=== PATIENT | male | born 1970 | race Caucasian/White ===

== ENCOUNTER 2021-02-16 13:38 | Emergency (ER) | payer MEDICARE, MEDICAID, SELFPAY ==
[2021-02-16 13:50] VITALS: BP 139/95; PULSE 81; RESP 14; TEMP 37.4; O2SAT 96
--- NOTE | 2021-02-16 13:53 | ED.UPPEXIN ---
HPI - Extremity Injury (Upper) General Chief Complaint: Extremity Injury, Upper Stated Complaint: left hand swollen Time Seen by Provider: 02/16/21 13:55 Source: patient Mode of arrival: ambulatory Limitations: no limitations History of Present Illness HPI narrative: Patient comes in with redness in left hand. He cut himself when cutting linoleum Wednesday. The hand has swelled a little, and has developed some erythema over the last two days. He has denied fever and chills. Discomfort in hand has been minimal. Nothing has made the hand better or worse. He has not elevated the hand which probably would have helped decrease the redness. He has not taken any medications. MD complaint: injury to: left and hand Onset (ago): day(s) Other injuries: none Handedness: left Place: home Severity: mild Severity scale (1-10): 1 Relieving factors: rest Exacerbating factors: movement of extremity Context: laceration Associated symptoms: denies other symptoms Related Data Home Medications Medication Instructions Recorded Confirmed bupropion HCl 300 mg PO DAILY 02/16/21 02/16/21 fluoxetine 40 mg PO DAILY 02/16/21 02/16/21 gabapentin 600 mg PO TID 02/16/21 02/16/21 hydrocodone-acetaminophen 1 tablet PO BID 02/16/21 02/16/21 levothyroxine 100 mcg PO DAILY 02/16/21 02/16/21 Allergies Allergy/AdvReac Type Severity Reaction Status Date / Time No Known Allergies Allergy Verified 02/16/21 13:41 Review of Systems Constitutional: Constitutional: Reports no additional constitutional complaints Eyes: Eyes: Reports no additional eye complaints ENT: Reports system reviewed and no additional complaints, except as documented Cardiovascular: Cardiovascular: Reports no additional cardiovascular complaints Respiratory: Respiratory: Reports no additional respiratory complaints Gastrointestinal: Gastrointestinal: Reports no additional gastrointestinal complaints Genitourinary: Genitourinary: Reports no additional male genitourinary complaints Musculoskeletal: Musculoskeletal: Reports no additional musculoskeletal complaints Integumentary/Breasts: Skin/Breast: Reports system reviewed and no additional complaints, except as docu Neurologic: Reports system reviewed and no additional complaints, except as documented Psychiatric: Psychiatric: Reports no additional psychiatric complaints Endocrine: Endocrine: Reports no additional endocrine complaints Hematologic/Lymphatic: Hematologic/Lymphatic: Reports no additional hematologic/lymphatic complaints Allergic/Immunologic: Allergic/Immunologic: Reports no additional allergic/immunologic complaints PMFSH Past Medical History Medical History (Updated 02/16/21 @ 16:46 by Eric Shipley MD) Chronic back pain Hypertension Hypothyroid Surgical History Surgical History (Updated 02/16/21 @ 16:46 by Eric Shipley MD) H/O wrist surgery History of carpal tunnel surgery Previous back surgery S/P surgery on nasal septum Family History Family History (Updated 02/16/21 @ 16:47 by Eric Shipley MD) Mother Colon cancer Father Colon cancer Social History Social History (Updated 02/16/21 @ 16:48 by Eric Shipley MD) Smoking status: Never smoker Alcohol intake: never Gender identity (if verbalized by the patient): Male Exam Const: General: no acute distress and alert Orientation/consciousness: patient oriented x3 HENMT: Head: normal to inspection Ears: TM's normal bilaterally General nose exam: Normal external nose present Face and sinus: normal facial exam Mouth: Yes Normal oral and palatal mucosa present Throat: posterior oropharynx normal Eyes: Conjunctivae: conjunctivae normal Neck: Neck: normal visual inspection and no lymphadenopathy Chest: Chest palpation & inspection: normal inspection of the chest Resp: Effort & Inspection: normal respiratory effort Auscultation: clear to auscultation bilaterally Cardio: Rate: regular rate Rhythm: regular rhythm GI
[2021-02-16] MEDS: TETANUS,DIPHTHERIA,AC PERTUSSIS ADULT 0.5 ML (ADACEL) IM (14:19)
[2021-02-16 14:20] LABS: Basophils Absolute Auto 0.07 K/mm3 (0.00-0.10); Basophils Percent Auto 0.8 % (0.0-1.0); Eosinophils Absolute Auto 0.31 K/mm3 (0.02-0.50); Eosinophils Percent Auto 3.5 % (1.0-6.0); Hematocrit 37.5 % (40.0-54.0); Hemoglobin 12.6 g/dL (14.0-18.0); Immature Granulocyte Absolute 0.02 K/mm3 (0.00-0.00); Immature Granulocyte Percent A 0.2 % (0.0-0.0); Lymphocytes Absolute Auto 1.05 K/mm3 (1.10-4.50); Mean Corpuscular HGB Conc 33.6 g/dL (32.0-36.0); Mean Corpuscular Volume 92.1 fL (78.0-102.0); Mean Platelet Volume 9.6 fl (8.7-11.0); Monocytes Absolute Auto 0.67 K/mm3 (0.10-0.90); Monocytes Percent Auto 7.7 % (2.0-11.0); Neutrophils Absolute Auto 6.6 K/mm3 (1.7-7.2); Neutrophils Percent Auto 75.8 % (50.0-70.0); Platelet Count Result 220 K/mm3 (150-420); Red Blood Count 4.07 M/mm3 (4.70-6.10); Red Cell Distribution Width 12.6 % (11.6-14.4); White Blood Count 8.7 K/mm3 (4.8-10.8)
[2021-02-16] MEDS: cefTRIAXone 1 GM VIAL IM (14:34)
[2021-02-16 14:59] VITALS: RESP 17
== END 2021-02-16 15:00 | disposition home or self-care (01) ==
PROVIDERS: Emergency Provider Emergency Medicine; PCP Family Medicine
DX: L03.114 Cellulitis of left upper limb (principal)
CPT/HCPCS: 36415; 85025; 90471; 90715; 96372; 99283; J0696

== ENCOUNTER 2022-09-29 13:23 | Emergency (ER) | payer MEDICARE, MEDICAID, SELFPAY ==
[2022-09-29 13:25] VITALS: BP 124/75; PULSE 62; RESP 16; TEMP 36.3; O2SAT 100
--- NOTE | 2022-09-29 13:39 | ED.GENADULT ---
HPI - General Adult General Chief complaint: Wound/Laceration Stated complaint: Cut finger Time Seen by Provider: 09/29/22 13:35 History of Present Illness HPI narrative: Edmundo is a 51M with a PMH of chronic back pain, HTN, and hypothyroidism that presented to the ED with a laceration on his right index finger on a circular saw just prior to coming. His tetanus is up to date. Related Data Home Medications Medication Instructions Recorded Confirmed fluoxetine 20 mg capsule 40 mg PO DAILY 02/16/21 09/29/22 gabapentin 600 mg tablet 800 mg PO TID 02/16/21 09/29/22 hydrocodone 7.5 mg-acetaminophen 1 tablet PO BID 02/16/21 09/29/22 325 mg tablet levothyroxine 100 mcg tablet 100 mcg PO DAILY 02/16/21 09/29/22 lisinopril 40 mg tablet 40 mg PO DAILY 09/29/22 09/29/22 quetiapine 100 mg tablet 100 mg PO HS 09/29/22 09/29/22 quetiapine 25 mg tablet 25 mg PO DAILY 09/29/22 09/29/22 Allergies Allergy/AdvReac Type Severity Reaction Status Date / Time No Known Allergies Allergy Verified 09/29/22 13:32 Review of Systems Review of Systems: All systems reviewed & are unremarkable except as noted in HPI and below PMFSH Past Medical History Medical History Chronic back pain Hypertension Hypothyroid Surgical History Surgical History H/O wrist surgery History of carpal tunnel surgery Previous back surgery S/P surgery on nasal septum Family History Family History Mother Colon cancer Father Colon cancer Social History Social History Smoking status: Never smoker Alcohol intake: never Gender identity (if verbalized by the patient): Male Exam Const: General: healthy appearing and no acute distress Nutritional Appearance: well nourished HENMT: Head: normal to inspection Ears: external ears normal Eyes: Conjunctivae: conjunctivae normal Pupils: Equal, round and reactive pupils present Neck: Neck: normal visual inspection Chest: Chest palpation & inspection: normal inspection of the chest Resp: Effort & Inspection: normal respiratory effort Cardio: Rate: regular rate Skin: Other: 1 inch linear shallow laceration on the pad of the right index finger Neuro: General: patient oriented x3 and moves all extremities Other: sensation intact in the right index finger Psych: Mental Status: mental status grossly normal Procedures Laceration Laceration 1: Date: 09/29/22 Time: 13:43 Site: hand (right index finger) Side (If applicable): right Size (cm): 2.5 Depth: simple, single layer ====== Skin Level ====== Skin layer closed with: dermabond ====== Subcutaneous Layer ====== ====== Muscle Layer ====== ====== Tendon Layer ====== Discharge Plan Discharge Clinical Impression: Laceration Patient Disposition: Home, Self-Care Condition: Stable Instructions: Skin Adhesive Care (ED) Prescriptions: No Action gabapentin 600 mg tablet 800 mg PO TID levothyroxine 100 mcg tablet 100 mcg PO DAILY hydrocodone-acetaminophen 7.5-325 mg tablet 1 tablet PO BID fluoxetine 20 mg capsule 40 mg PO DAILY quetiapine 25 mg tablet 25 mg PO DAILY quetiapine 100 mg tablet 100 mg PO HS lisinopril 40 mg tablet 40 mg PO DAILY Follow-up/Referrals: Fabio Allison M.D. [Primary Care Provider] -
== END 2022-09-29 13:49 | disposition home or self-care (01) ==
LOC: CHSED 13:45
PROVIDERS: Emergency Provider Family Medicine; PCP Family Medicine
DX: S61.210A Laceration without foreign body of right index finger without damage to nail, initial encounter (principal); I10 Essential (primary) hypertension; E03.9 Hypothyroidism, unspecified; Z79.891 Long term (current) use of opiate analgesic; W27.0XXA Contact with workbench tool, initial encounter
CPT/HCPCS: 12001; 99282